=== PATIENT | female | born 1995 | race Caucasian/White ===

== ENCOUNTER 2020-11-17 15:17 | Emergency (ER) | payer MEDICAID ==
[~2020-11-17] VITALS: Ht 170.2 cm; Wt 117.0 kg
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
[2020-11-17] MEDS ORDERED: CYCL10TA9 PO (15:59)
[2020-11-17] MEDS ORDERED: IBUP-1955 PO (15:59)
[2020-11-17 16:15] VITALS: BP 152/101
--- NOTE | 2020-11-17 16:15 | NUR ---
DISCHARGE IN STABLE CONDITION, ACCOMPANIED BY MOTHER, A/O X4, ALL BELONGINGS WITH PATIENT. HEALTH TEACHING/DISCHARGE INSTRUCTION AND PRESCRIPTION MEDICATION GIVEN AND VERBALIZED UNDERSTANDING. VSS.
== END 2020-11-17 16:15 | disposition home or self-care (01) ==
LOC: ER 15:25
DX: S39.012A Strain of muscle, fascia and tendon of lower back, initial encounter (principal); S16.1XXA Strain of muscle, fascia and tendon at neck level, initial encounter; M25.512 Pain in left shoulder; E66.8 Other obesity; Z68.41 Body mass index [BMI] 40.0-44.9, adult; Z91.018 Allergy to other foods; Z79.899 Other long term (current) drug therapy; V49.49XA Driver injured in collision with other motor vehicles in traffic accident, initial encounter; Y93.89 Activity, other specified; Y92.488 Other paved roadways as the place of occurrence of the external cause; Y99.8 Other external cause status
CPT/HCPCS: 99283; A6403